=== PATIENT | female | born 1975 ===

== ENCOUNTER 2018-05-21 07:40 | Day surgery (SDC) | payer MEDICAID ==
[2018-05-20 10:07] VITALS: BMI 28.4
[2018-05-21] MEDS ORDERED: Lactated Ringer's 1,000 ML IV ONE ×3 (09:00→13:42)
[2018-05-21] MEDS ORDERED: Propofol 10 mg/ml Inj (20 ML) ONE (09:57)
[2018-05-21] MEDS ORDERED: Midazolam 2 MG/2 ML VIAL ONE (09:57)
[2018-05-21] MEDS ORDERED: Bupivacaine HCl 0.25% PF (30 ml) Inj ONE (10:04)
[2018-05-21] MEDS ORDERED: EPINEPHrine 1 mg/ml (1:1000) Inj ONE (10:05)
[2018-05-21] MEDS ORDERED: ceFAZolin IV 1 gm in Dextrose 2 GM/100 ML BAG IVPB ONE (10:19)
[2018-05-21 10:56] VITALS: RESP 18
[2018-05-21] MEDS ORDERED: Lidocaine 2% PF (10 ml) Amp ONE (10:59)
[2018-05-21] MEDS ORDERED: Dexamethasone 4 mg/1 ml ONE (11:35)
--- NOTE | 2018-05-21 12:59 | PCM.SURG1 ---
Surgeon's Initial Post Op Note - Surgeon's Notes Surgeon: Dr. Waggoner Objective C Developer: Dewayne Blackwell DPM PGY2 Type of Anesthesia: General LMA Anesthesia Administered By: Dr. Evans Pre-Operative Diagnosis: Left ankle nonunion, painful retained hardware Operative Findings: See dictation Post-Operative Diagnosis: Same as above Operation Performed: Left ankle repair of nonunion, removal of hardware, medial ankle stabilization with internal brace Specimen/Specimens Removed: left ankle medial malleolus Estimated Blood Loss: EBL {In ML}: 1 Blood Products Given: N/A Drains Used: No Drains Post-Op Condition: Good Date of Surgery/Procedure: 05/21/18 Time of Surgery/Procedure: 12:59
[2018-05-21] MEDS ORDERED: Oxycodone/Acetaminophen 5/325 mg Tab PO PRN ×2 (13:00)
[2018-05-21] MEDS ORDERED: Dexamethasone 4 mg/1 ml IVP PRN (13:02)
--- NOTE | 2018-05-21 13:05 | PCM.ANESB7 ---
Adductor Canal Block - Adductor Canal Block Date of Procedure: 05/21/18 Anesthiologist: Mark Evans Pre-Procedure Diagnosis: Previous L ankle fracture Post-Procedure Diagnosis: Previous L ankle fracture Procedure Performed: Adductor Canal Block Left - Procedure Adductor Canal Block: The procedure was explained to the patient that it is for the post-operative pain management. Consent was obtained after a thorough discussion with the patient regarding the benefits and possible complications of local anesthetic adductor canal block of the femoral nerve. Standard monitors, as defined by the ASA, were applied to the patient. Time-out was held with the circulating nurse to confirm the appropriate block. After applying supplemental oxygen and administering IV Sedation as needed, the patient was placed in supine position with and the operative leg was flexed slightly at the knee and externally rotated as needed, and was kept anatomically stable. The mid-thigh of the left lower extremity was exposed. The ultrasound transducer was then applied transversely along the medial aspect, about midway down the thigh and the femoral artery and vein were identified in appropriate relation with the sartorius muscle. At this time, the femoral nerve was visualized lateral to the femoral artery within the canal. After thorough identification, this area area was prepped with Chloroprep and 1 % Lidocaine was injected subcutaneously for topical anesthesia. At this point, a #22 gauge Stimuplex 4-inch needle was inserted in-plane in a [id number] orientation, and advanced toward the femoral nerve. Advancement was performed carefully under direct ultrasound visualization. After negative aspiration, 30cc of 0.25% bupivacaine with [id number] epinephrine was injected in 5cc aliquots. Under ultrasound guidance the local anesthetics were observed spreading around the femoral nerve. The needle was removed intact and sterile dressing was applied. The patient had stable vital signs, was conscious and in no apparent distress. The patient tolerated the femoral nerve block well with stable vital signs and was prepared for subsequent surgery
[2018-05-21] MEDS ORDERED: Oxycodone/Acetaminophen 5/325 mg Tab PO ONE (14:50)
[2018-05-21 16:31] VITALS: BP 107/68; PULSE 64; TEMP 98; O2SAT 100
--- NOTE | 2018-05-22 00:41 | OP ---
PROCEDURE DATE: 05/21/2018 PREOPERATIVE DIAGNOSES: 1. Left ankle malunion of medial malleolar fracture. 2. Symptomatic hardware. POSTOPERATIVE DIAGNOSES: 1. Left ankle malunion of medial malleolar fracture. 2. Symptomatic hardware. PROCEDURES: 1. Left ankle removal of hardware. 2. Extensive debridement of soft tissue and bone and removal of small medial nonunion fragment. 3. Deltoid ligament reconstruction using Arthrex internal brace. ANESTHESIA TYPE: General and saphenous nerve block. ESTIMATED BLOOD LOSS: 60 mL. COMPLICATIONS: None. HISTORY: The patient is a 42-year-old male who had a traumatic fracture of the left ankle. The patient underwent open reduction and internal fixation of the bimalleolar fracture. The lateral malleolus healed without any complication; however, there was nonunion and symptomatic hardware of the medial malleolus. The patient was treated with extensive conservative management, however, symptoms have not improved. After which, the patient was indicated for removal of hardware, ligament reconstruction and debridement of the soft tissue and bone. I reviewed the risks and benefit of the surgery with the patient in detail. The risks included, but not limited to bleeding, infection, neurovascular damage, continued pain, instability, stiffness, blood clots, need for further surgery among others. The patient fully understood the risks and benefits and opted to proceed. DESCRIPTION OF PROCEDURE: On the day of the procedure, the patient was brought to the preop holding area. A laterality sheet was completed, confirming the patient's left ankle to be correct operative site. An informed consent was signed. The patient was brought into the operating room table. She underwent general anesthesia. A padded tourniquet was applied to the patient's left thigh, and left ankle was draped and prepped in a standard sterile manner. First, a time-out was completed, confirming left ankle to be the correct operative site. After exsanguination of the extremity, the tourniquet was inflated to 350 mmHg. First, the fluoroscopic images were taken showing the nonunion fragment. We utilized the previous medial malleolar incision. Using a 10-blade, skin dissection was taken down, and the loose nonunion fragment was identified which found to be a small fragment that was removed. Next, using a screwdriver, two medial malleolus screws were taken and removed without any difficulty. Next, the ankle was checked for stability. There was medial stability. There was extensive soft tissue debridement and debridement of bone. Afterwards, we decided to proceed with internal brace. First, using a 3.5-mm drill, a drill hole was made at medial malleolus and a 4.75 SwiveLock anchor was placed, loaded with FiberTape. The two additional 3.5 anchors were placed one in talar body and one in the calcaneus to reconstruct the deltoid ligament. Afterwards, the ankle instability was confirmed and was found to be stable. X-rays were taken and care was taken no to penetrate the subtalar and tibiotalar joint. Finally, the wound was copiously irrigated. All the bone debris was removed. The skin was closed in a standard manner. The patient was placed in a sterile dressing and a posterior splint and postoperative instruction including non-weightbearing. There were no complications of surgery. Armani Waggoner MD
== END 2018-05-21 17:15 | disposition home or self-care (01) ==
LOC: H.OPSURG 07:40
PROVIDERS: ATTEND Orthopaedic Surgery
DX: S82.52XA Displaced fracture of medial malleolus of left tibia, initial encounter for closed fracture (principal); X58.XXXA Exposure to other specified factors, initial encounter; T84.84XA Pain due to internal orthopedic prosthetic devices, implants and grafts, initial encounter
CPT/HCPCS: 20680; 27814; 88304; C1713; J0171; J0690; J1100; J1170; J2001; J2175; J2250; J2405; J2704; J3010; J7030; J7120